=== PATIENT | male | born 1975 | race Caucasian/White ===

== ENCOUNTER 2023-12-01 11:22 | Emergency (ER) | payer BC, SELFPAY ==
[2023-12-01 11:32] VITALS: BP 158/94; PULSE 71; RESP 17; TEMP 36.6; O2SAT 100; BMI 26.3
[2023-12-01] MEDS: IBUPROFEN 400 MG TABLET 800 MG PO (12:44)
--- NOTE | 2023-12-01 12:56 | DI.CT.S_ITS ---
PROCEDURE: CT FACIAL BONES W CON INDICATIONS: R sided facial swelling, pain TECHNIQUE: After the administration of intravenous contrast, 2.5 mm axial sections acquired from the mid-neck to the frontal sinuses, with coronal and sagittal reformats. For radiation dose reduction, the following was used: automated exposure control, adjustment of mA and/or kV according to patient size. COMPARISON: None. FINDINGS: Image quality: Excellent. Soft tissues: Mild right-sided facial cellulitis. No abscess cavity. No mass. No enlarged lymph nodes. Vascular: Visualized vascular structures appear patent throughout. Bony vascular foramina and canals appear normal. Bones: Facial bones appear intact, without fractures, erosions, or destruction. Visualized portions of the skull base and auditory canals also appear normal. Sinuses: Trace left maxillary sinus air-fluid level. Minimal bilateral maxillary sinus mucosal thickening. Minimal patchy ethmoid disease. Mastoid air cells are aerated. IMPRESSION: 1. Mild right facial cellulitis without abscess. 2. Mild sinus disease. Dictated by: Miles Miller M.D. on 12/01/2023 at 13:46 Approved by: Miles Miller M.D. on 12/01/2023 at 13:57
[2023-12-01 13:23] LABS: Add Manual Diff / Slide Review YES; Hematocrit 30.6 % (41-53); Hemoglobin 9.4 g/dL (13.5-17.5); Mean Corpuscular HGB Conc 30.7 % (30-36); Mean Corpuscular Hemoglobin 19.3 PG (26-34); Mean Corpuscular Volume 62.9 fL (80-100); Platelet Count 434 X10^3/uL (150-400); Red Blood Cell Count 4.86 X10^6/uL (4.5-5.9); Red Cell Distribution Width 22.4 % (11.6-14.8); White Blood Cell Count 9.9 X10^3/uL (4.5-11.0)
[2023-12-01 13:28] LABS: Prothrombin Time 11.9 SECONDS (9.4-12.5)
[2023-12-01 13:31] LABS: PTT Partial Thromboplastin Tim 34 SECONDS (25.1-36.5)
[2023-12-01 13:32] LABS: Alanine Aminotransferase 11 IU/L (<50); Albumin 4.8 g/dL (3.5-5.0); Albumin Globulin Ratio 1.3 (1.0-2.8); Alkaline Phosphatase 71 U/L (38-126); Aspartate Aminotransferase 21 IU/L (17-59); BUN Creatinine Ratio 8.7 (6-22); Bilirubin Total 0.4 mg/dL (0.2-1.3); Blood Urea Nitrogen 9 mg/dL (9-20); Calcium 9.4 mg/dL (8.4-10.2); Carbon Dioxide 27 mmol/L (22-32); Chloride 108 mmol/L (98-107); Estimated Glomerular Filt Rate > 60 mL/min (>60); Globulin 3.7 g/dL (1.7-4.1); Glucose 101 mg/dL (70-100); HEMOLYSIS < 15 (0-50); Potassium 4.6 mmol/L (3.4-5.1); Sodium 139 mmol/L (137-145); Total Protein 8.5 g/dL (6.3-8.2)
[2023-12-01 13:45] LABS: Neutrophils Absolute Manual 6930 /uL (3000-5900); Total Cells Counted 100
[2023-12-01 13:46] LABS: Anisocytosis 2+; Microcytosis 2+; Target Cells 1+
[2023-12-01 14:35] VITALS: BP 147/86; PULSE 56; RESP 17; O2SAT 100
--- NOTE | 2023-12-01 16:01 | ED_ITS ---
HPI - Skin/Abscess/Foreign Bdy <Rosa Barnes PA-C - Last Filed: 12/01/23 16:07> General Chief complaint: Skin/Abscess/Foreign Body Stated complaint: sinus infec. swelling right side face Time Seen by Provider: 12/01/23 12:28 Source: patient Mode of arrival: Ambulatory History of Present Illness HPI narrative: 48-year-old male presents to the ED with 1 week of right-sided facial pain and swelling. Patient states that his symptoms started a week ago as pain in his maxillary sinus area, subsided a bit, however has worsened over the weekend. Patient states that over the weekend, the swelling has significantly increased as well as the pain. No fever, chills, nausea, vomiting. No dental pain. Related Data Previous Rx's Medication Instructions Recorded cephalexin 500 mg capsule 500 mg PO QID 7 days #28 caps 12/01/23 sulfamethoxazole 800 1 tab PO BID 10 days #20 tabs 12/01/23 mg-trimethoprim 160 mg tablet (Bactrim DS) Allergies Allergy/AdvReac Type Severity Reaction Status Date / Time No Known Drug Allergies Allergy Verified 12/01/23 11:36 Review of Systems <Rosa Barnes PA-C - Last Filed: 12/01/23 16:07> Constitutional Constitutional: Denies chills, Denies fatigue, Denies fever(s), Denies frequent falls, Denies lethargy and Denies weakness Eyes Eyes: Denies change in vision, Denies eye discharge, Denies irritation and Denies loss of vision ENT Ears, Nose, Mouth, and Throat: Denies change in voice, Denies dizziness, Reports facial pain, Denies neck pain, Denies sore throat and Denies throat swelling Cardiovascular Cardiovascular: Denies chest pain, Denies irregular heart rhythm, Denies lightheadedness, Denies palpitations, Denies dyspnea, Denies dyspnea on exertion and Denies orthopnea Respiratory Respiratory: Denies cough, Denies dyspnea, Denies dyspnea on exertion and Denies wheezing Gastrointestinal Gastrointestinal: Denies abdominal pain, Denies change in bowel habits, Denies diarrhea, Denies nausea and Denies vomiting Musculoskeletal Musculoskeletal: Denies neck pain and Denies numbness Integumentary/Breasts Skin/Breast: Denies pruritus, Denies erythema, Denies rash and Denies wounds Neurologic Neurologic: Denies behavioral changes, Denies confusion, Denies dizziness, Denies frequent falls, Denies loss of vision, Denies numbness and Denies weakness Psychiatric Psychiatric: Denies anxiety, Denies behavioral changes, Denies confusion, Denies depression, Denies homicidal ideation and Denies suicidal ideation Endocrine Endocrine: Denies fatigue, Denies flushing and Denies palpitations Hematologic/Lymphatic Hematologic/Lymphatic: Denies easy bruising Allergic/Immunologic Allergic/Immunologic: Denies urticaria, Denies throat swelling and Denies wheezing Patient History <Rosa Barnes PA-C - Last Filed: 12/01/23 16:07> Social History Smoking Status: Never smoker Smoking Status: Never smoker alcohol intake frequency: 0-2 drinks per day Substance Use Type: marijuana Exam <Rosa Barnes PA-C - Last Filed: 12/01/23 16:07> Narrative Exam Narrative: Const General:?cooperative, healthy appearing and comfortable HENAK Head:?normal to inspection Ears:?hearing grossly normal bilaterally Nose:?external nose normal Face and sinus:? Right side of face appear significantly swollen and erythematous, tender to touch. Mouth:?oral mucosae normal with the exception of 1 right-sided aphthous ulcer. No dental caries or abscesses noted on exam Throat:?posterior oropharynx normal Eyes General:?appearance normal, both eyes and all related structures Neck Neck:?normal visual inspection and no lymphadenopathy noted Resp Effort & Inspection:?normal respiratory effort Auscultation:?clear to auscultation bilaterally Cardio Rate:?regular rate Rhythm:?regular rhythm Neuro General:?patient alert, patient awake and patient oriented x3 Initial Vital Signs Initial Vital Signs: Vital Signs Temperature 98 F 12/01/23 11:32 Pulse Rate 71 12/01/23 11:32 Respiratory Rate 12/01/23 11:32 Blood Pressure 158/94 H 12/01/23 11:32 Pulse Oximetry 100 12/01/23 11:32 Oxygen Delivery Method Room Air 12/01/23 11:32 <Kiko Traylor MD - Last Filed: 12/05/23 11:44> Initial Vital Signs Initial Vital Signs: Vital Signs Temperature 98 F 12/01/23 11:32 Pulse Rate 71 12/01/23 11:32 Respiratory Rate 12/01/23 11:32 Blood Pressure 158/94 H 12/01/23 11:32 Pulse Oximetry 100 12/01/23 11:32 Oxygen Delivery Method Room Air 12/01/23 11:32 Course <Rosa Barnes PA-C - Last Filed: 12/01/23 16:07> Orders Ordered: Discontinued Medications Ibuprofen (Ibuprofen 400 Mg Tablet) 800 mg PO NOW ONE Stop: 12/01/23 12:41 Last Admin: 12/01/23 12:44 Dose: 800 mg Documented By: RL Vital Signs Vital signs: Vital Signs - 8 hr 12/01/23 11:32 12/01/23 14:35 Temperature 98 F Pulse Rate 71 56 L Respiratory Rate 17 17 Blood Pressure 158/94 H 147/86 H Pulse Oximetry 100 100 Oxygen Delivery Method Room Air Room Air <Kiko Traylor MD - Last Filed: 12/05/23 11:44> Orders Ordered: Discontinued Medications Ibuprofen (Ibuprofen 400 Mg Tablet) 800 mg PO NOW ONE Stop: 12/01/23 12:41 Last Admin: 12/01/23 12:44 Dose: 800 mg Documented By: RL Vital Signs Vital signs: Vital Signs - 8 hr 12/01/23 11:32 12/01/23 14:35 Temperature 98 F Pulse Rate 71 56 L Respiratory Rate 17 17 Blood Pressure 158/94 H 147/86 H Pulse Oximetry 100 100 Oxygen Delivery Method Room Air Room Air MDM - Skin/Abscess/Foreign Bdy <Rosa Barnes PA-C - Last Filed: 12/01/23 16:07> Lab Data 12/01/23 13:00 12/01/23 13:00 Labs: Lab Results 12/01/23 Range/Units 13:00 WBC 9.9 (4.5-11.0) X10^3/uL RBC 4.86 (4.5-5.9) X10^6/uL Hgb 9.4 L (13.5-17.5) g/dL Hct 30.6 L (41-53) % MCV 62.9 L (80-100) fL MCH 19.3 L (26-34) PG MCHC 30.7 (30-36) % RDW 22.4 H (11.6-14.8) % Plt Count 434 H (150-400) X10^3/uL Neut % (Auto) Not Reportable Lymph % (Auto) Not Reportable [place] % (Auto) Not Reportable Eos % (Auto) Not Reportable Baso % (Auto) Not Reportable Lymph # (Auto) Not Reportable [place] # (Auto) Not Reportable Baso # (Auto) Not Reportable Total Counted 100 Seg Neutrophils % 69.0 (38-70) % Band Neutrophils % 1.0 L (3-7) % Lymphocytes % (Manual) 21.0 L (25-45) % Monocytes % (Manual) 4.0 (2-11) % Eosinophils % (Manual) 4.0 (2-4) % Basophils % (Manual) 1.0 (0-1) % Neutrophils # (Manual) 6930 H (8092-2910) /uL RBC Morphology See below Anisocytosis 2+ H Microcytosis 2+ H Target Cells 1+ H PT 11.9 (9.4-12.5) SECONDS INR 1.0 (0.9-1.3) APTT 34 (25.1-36.5) SECONDS Sodium 139 (137-145) mmol/L Potassium 4.6 (3.4-5.1) mmol/L Chloride 108 H (98-107) mmol/L Carbon Dioxide 27 (22-32) mmol/L BUN 9 (9-20) mg/dL Creatinine 1.04 (0.66-1.25) mg/dL Estimated GFR > 60 (>60) mL/min BUN/Creatinine Ratio 8.7 (6-22) Glucose 101 H (70-100) mg/dL Lactate 1.0 (0.7-2.1) mmol/L Calcium 9.4 (8.4-10.2) mg/dL Total Bilirubin 0.4 (0.2-1.3) mg/dL AST 21 (17-59) IU/L ALT 11 (<50) IU/L Alkaline Phosphatase 71 (38-126) U/L Total Protein 8.5 H (6.3-8.2) g/dL Albumin 4.8 (3.5-5.0) g/dL Globulin 3.7 (1.7-4.1) g/dL Albumin/Globulin Ratio 1.3 (1.0-2.8) MDM Narrative Medical decision making narrative: 48-year-old male presents to the ED with 1 week of right-sided facial pain and swelling. Given significant swelling and pain, will obtain labs, CT. Will reassess. Patient given ibuprofen for pain. CT shows mild right facial cellulitis without abscess and mild sinus disease. Patient prescribed antibiotics. Recommend follow-up with dentist as well. ED return precautions discussed with patient. Patient verbalized understanding. Medical records reviewed: Yes. <Kiko Traylor MD - Last Filed: 12/05/23 11:44> Lab Data Labs: Lab Results 12/01/23 Range/Units 13:00 WBC 9.9 (4.5-11.0) X10^3/uL RBC 4.86 (4.5-5.9) X10^6/uL Hgb 9.4 L (13.5-17.5) g/dL Hct 30.6 L (41-53) % MCV 62.9 L (80-100) fL MCH 19.3 L (26-34) PG MCHC 30.7 (30-36) % RDW 22.4 H (11.6-14.8) % Plt Count 434 H (150-400) X10^3/uL Neut % (Auto) Not Reportable Lymph % (Auto) Not Reportable [place] % (Auto) Not Reportable Eos % (Auto) Not Reportable Baso % (Auto) Not Reportable Lymph # (Auto) Not Reportable [place] # (Auto) Not Reportable Baso # (Auto) Not Reportable Total Counted 100 Seg Neutrophils % 69.0 (38-70) % Band Neutrophils % 1.0 L (3-7) % Lymphocytes % (Manual) 21.0 L (25-45) % Monocytes % (Manual) 4.0 (2-11) % Eosinophils % (Manual) 4.0 (2-4) % Basophils % (Manual) 1.0 (0-1) % Neutrophils # (Manual) 6930 H (8045-7871) /uL RBC Morphology See below Anisocytosis 2+ H Microcytosis 2+ H Target Cells 1+ H PT 11.9 (9.4-12.5) SECONDS INR 1.0 (0.9-1.3) APTT 34 (25.1-36.5) SECONDS Sodium 139 (137-145) mmol/L Potassium 4.6 (3.4-5.1) mmol/L Chloride 108 H (98-107) mmol/L Carbon Dioxide 27 (22-32) mmol/L BUN 9 (9-20) mg/dL Creatinine 1.04 (0.66-1.25) mg/dL Estimated GFR > 60 (>60) mL/min BUN/Creatinine Ratio 8.7 (6-22) Glucose 101 H (70-100) mg/dL Lactate 1.0 (0.7-2.1) mmol/L Calcium 9.4 (8.4-10.2) mg/dL Total Bilirubin 0.4 (0.2-1.3) mg/dL AST 21 (17-59) IU/L ALT 11 (<50) IU/L Alkaline Phosphatase 71 (38-126) U/L Total Protein 8.5 H (6.3-8.2) g/dL Albumin 4.8 (3.5-5.0) g/dL Globulin 3.7 (1.7-4.1) g/dL Albumin/Globulin Ratio 1.3 (1.0-2.8) Discharge Plan Departure Patient Disposition: Home Clinical Impression: Cellulitis Instructions: DI for Cellulitis -- Adult Activity Restrictions/Additional Instructions: You were evaluated in the ED today for right-sided facial swelling. Your labs were normal. The CT scan did show cellulitis, which is an infection of the skin which is responsible for your symptoms. You are being prescribed antibiotics for the infection. Please take those as prescribed. Please also follow-up with your dentist to rule out any dental causes of the infection. Return to the ED if you have worsening symptoms, fever, chills, persistent vomiting. Prescriptions: New sulfamethoxazole-trimethoprim [Bactrim DS] 800-160 mg tablet 1 tab PO BID 10 Days Qty: 20 0RF cephalexin 500 mg capsule 500 mg PO QID 7 Days Qty: 28 0RF Referrals: Miscellaneous,[facility] [Primary Care Provider] - Stand Alone Forms: Patient Portal/API ED Sign-out <Kiko Traylor MD - Last Filed: 12/05/23 11:44> Cosign ED Attending Magdaature Attestation: I was immediately available in the department for consultation. ?This documentation has been reviewed and I agree with assessment and plan. Supervised by Kiko Traylor MD
== END 2023-12-01 14:36 | disposition home or self-care (01) ==
PROVIDERS: Emergency Provider Student in an Organized Health Care Education/Training Program
DX: L03.211 Cellulitis of face (principal)
CPT/HCPCS: 36415; 70487; 80053; 83605; 85007; 85025; 85610; 85730; 99284